=== PATIENT | male | born 1965 | race Caucasian/White ===

== ENCOUNTER 2023-06-21 17:03 | Emergency (ER) | payer BC, SELFPAY ==
[2023-06-21] VITALS (8 sets, daily range): BP systolic 83–164; BP diastolic 56–86; PULSE 82–93; RESP 18–22; TEMP 36.6; O2SAT 94–98
[2023-06-21 17:11] LABS: Glucose Point of Care 235 mg/dl (65-105)
--- NOTE | 2023-06-21 17:18 | ED.ABDPAIN ---
HPI - Abdominal Pain General Chief Complaint: Abdominal Pain Stated Complaint: CONSTIPATION Source: patient and EMS Mode of arrival: EMS History of Present Illness HPI narrative: 57 years old white male lives alone, came from home by ambulance complaining of no bowel movement over the last 4 days with abdominal pain. Patient report not able to eat over the last 3 days because of poor appetite. Patient on hemodialysis, missed last 1 which is 2 days ago. He denies any fever, chills, nausea or vomiting. Patient reported that he is leaking stool out of his anus over the last few days patient reported that he have history anuria but over the last 2 days been able to urinate quite a bed Related Data Home Medications Medication Instructions Recorded Confirmed cyclobenzaprine 10 mg tablet 10 mg PO TID PRN Pain 06/21/23 06/21/23 febuxostat 40 mg tablet 40 mg PO DAILY 06/21/23 06/21/23 furosemide 40 mg tablet 40 mg PO DAILY 06/21/23 06/21/23 glyburide 5 mg tablet 5 mg PO DAILY 06/21/23 06/21/23 hydrocodone 5 mg-acetaminophen 325 1 tablet PO Q8H PRN Pain 06/21/23 06/21/23 mg tablet nifedipine 60 mg tablet,extended 60 mg PO DAILY 06/21/23 06/21/23 release peg 400-propylene glycol (PF) 0.4 1 drp EACH EYE QID 06/21/23 06/21/23 %-0.3 % eye drops in a dropperette (Systane (PF)) pravastatin 40 mg tablet 40 mg PO HS 06/21/23 06/21/23 pregabalin 50 mg capsule 50 mg PO BID 06/21/23 06/21/23 propranolol 10 mg tablet 10 mg PO Q12H 06/21/23 06/21/23 vitamin B complex-vitamin C-folic 1 tablet PO DAILY 06/21/23 06/21/23 acid 0.8 mg tablet (Renal Vitamin) Allergies Allergy/AdvReac Type Severity Reaction Status Date / Time morphine Allergy Vomiting Verified 06/21/23 18:15 Review of Systems Review of Systems: All systems reviewed & are unremarkable except as noted in HPI and below Exam Narrative: General appearance: Well-developed, well-nourished, morbidly obese, difficult to move upper or lower extremities without multimedia assistant Skin: Normal color Head: Normocephalic, nontraumatic Eyes: Clear conjunctiva ENT: Oropharynx normal, ears normal, nose normal Neck: Supple, nontender Chest and respiratory: Airway patent, no respiratory distress, no accessory muscle use Heart: Regular rate/rhythm Abdomen: Soft, diffuse abdominal pain mainly lower abdomen, slight guarding, no rebound no organomegaly, quiet bowel sounds Vascular: Normal peripheral pulses, normal capillary refill. Musculoskeletal: Normal range of motion, nontender back Neurologic: Alert and oriented ?3, TRIAGE ASSISTANT is normal as tested, no gross motor deficit Course Consultations Consultation #1: Dr Vázquez, emergency room physician at [facility] ED Date: 06/21/23 Time: 21:59 Vital Signs Vital signs: Vital Signs Temperature 36.6 C 06/21/23 17:10 Pulse Rate 92 06/21/23 17:10 Respiratory Rate 20 06/21/23 17:10 Blood Pressure 116/79 06/21/23 17:10 Pulse Oximetry 95 06/21/23 17:10 Oxygen Delivery Room Air 06/21/23 17:10 Temperature 36.6 C 06/21/23 17:10 Pulse Rate 90 06/21/23 18:30 Respiratory Rate 20 06/21/23 18:30 Blood Pressure 125/76 06/21/23 18:30 Pulse Oximetry 94 06/21/23 18:30 Oxygen Delivery Room Air 06/21/23 18:30 MDM - Abdominal Pain MDM Narrative Medical decision making narrative: patient came with abdominal pain, constipation, missed last dialysis 3 days ago Patient is 200 kg, CT scan of the abdomen and pelvis cannot be done in our facility because of the patient's size and weight, after few trials to different hospitals we got the okay to be transferred to [facility]. In the ED patient received 50 mcg of fentany
[2023-06-21 17:45] LABS: Basophils Absolute Auto 0.02 K/mm3 (0.00-0.10); Basophils Percent Auto 0.2 % (0.0-1.0); Eosinophils Percent Auto 0.9 % (1.0-6.0); Hematocrit 31.6 % (40.0-54.0); Hemoglobin 10.6 g/dL (14.0-18.0); Immature Granulocyte Absolute 0.08 K/mm3 (0.00-0.00); Immature Granulocyte Percent A 0.8 % (0.0-0.0); Lymphocytes Absolute Auto 1.12 K/mm3 (1.10-4.50); Lymphocytes Percent Auto 10.6 % (18.0-42.0); Mean Corpuscular HGB Conc 33.5 g/dL (32-36); Mean Corpuscular Hemoglobin 31.7 pg (27.0-31.0); Mean Corpuscular Volume 94.6 fL (78.0-102.0); Mean Platelet Volume 9.2 fl (8.7-11.0); Monocytes Percent Auto 4.7 % (2.0-11.0); Neutrophils Absolute Auto 8.74 K/mm3 (1.70-7.20); Neutrophils Percent Auto 82.8 % (50.0-70.0); Platelet Count Result 150 K/mm3 (150-420); Red Blood Count 3.34 M/mm3 (4.70-6.10); Red Cell Distribution Width 13.9 % (11.6-14.4); White Blood Count 10.6 K/mm3 (4.8-10.8)
[2023-06-21 18:00] LABS: Alanine Aminotransferase 24 U/L (16-63); Albumin Level 3.2 g/dL (3.4-5.0); Alkaline Phosphatase 140 U/L (46-116); Anion Gap 22 mmol/L (4-12); Aspartate Amino Transferase 17 U/L (15-37); Bilirubin,Total 0.6 mg/dL (0.00-1.00); Blood Urea Nitrogen 128 mg/dL (7-18); Calcium 9.7 mg/dL (8.5-10.1); Carbon Dioxide 18 mmol/L (21-32); Chloride 92 mmol/L (98-108); Estimated CRCL calculation 9 ml/min; Estimated Glomerular Filt Rate 3; Glucose 200 mg/dL (70-99); Lipase 53 U/L (16-77); Osmolality Calculated 321 mOsm/kg (285-295); Potassium 5.7 mmol/L (3.5-5.1); Sodium 132 mmol/L (136-145); Total Protein 7.2 g/dL (6.4-8.2)
--- NOTE | 2023-06-21 18:03 | PC.NURSE ---
lab reports critical creatinin of 15.03. ERP made aware.
--- NOTE | 2023-06-21 18:10 | PC.NURSE ---
[address] PT UNABLE TO GET CT ABD DUE TO MACHINE COULD NOT HANDLE THE WEIGHT
--- NOTE | 2023-06-21 18:11 | PC.NURSE ---
[address] [facility] DECLINED PT [facility] DECLINED PT
[2023-06-21] MEDS: ONDANSETRON INJ 4 MG/2 ML VIAL 8 MG IV PUSH (18:21)
--- NOTE | 2023-06-21 19:03 | PC.NURSE ---
19[address] DR SANFORD TALKING WITH DOCTOR FROM [facility]
--- NOTE | 2023-06-21 19:08 | PC.NURSE ---
ERP at [place] will speak with the radiologist and they will call us back regarding transfer of pt for CT scan
--- NOTE | 2023-06-21 19:40 | PC.NURSE ---
Per [facility] radiology, they are unable to take the patient for CT scan 2/[address] weight[address] informed Dr. Ceja that [facility] is the only hospital that would be able to take him. Will call [facility]
--- NOTE | 2023-06-21 20:03 | PC.NURSE ---
[facility] requires a diameter of less than 80 cm at the pt widest part when lying flat. Pt measured about 70cm at his widest.
[2023-06-21] MEDS: fentaNYL CITRATE INJ (*CRX) 100 MCG/2 ML VIAL 50 MCG IV PUSH (20:29)
== END 2023-06-21 21:41 | disposition short-term general hospital (02) ==
PROVIDERS: Emergency Provider Emergency Medicine
DX: K59.00 Constipation, unspecified (principal); R10.9 Unspecified abdominal pain; Z99.2 Dependence on renal dialysis
CPT/HCPCS: 36415; 80053; 82948; 83690; 85025; 96374; 96375; 99284; 99285; J2405; J3010

== ENCOUNTER 2023-06-27 21:54 | Emergency (ER) | payer BC, SELFPAY ==
--- NOTE | ~2023-06-27 | CT_ITS ---
EXAMINATION: CT abdomen pelvis wo con DATE: 06/28/2023 00:48 INDICATION: Abdominal pain TECHNIQUE: Computed tomography (CT) of the abdomen and pelvis was performed without intravenous contr ast. The dose-length product was 1756.68 mGy-cm. Automated exposure control and iterative reconstruct ion technique were employed. COMPARISON: None. FINDINGS: There is bilateral lower lobe atelectasis. Heart size normal. Heart size normal. No signifi cant pleural or pericardial effusion. The liver, spleen, pancreas, right adrenal glands are unremarka ble. 1.5 cm left adrenal nodule, most likely benign adenoma. Gallbladder is present. Innumerable bila teral renal masses are present, some of which are intermediate density and high density, most likely polycystic kidney disease. There are nonobstructing bilateral renal stones. No hydronephrosis. No abn ormal pelvic masses or fluid collections. No free air or free fluid. There is diffuse sclerosis throu ghout the bones particularly in the spine. Metastatic disease cannot be excluded. IMPRESSION: 1. Bilateral lower lobe atelectasis. 2: Innumerable bilateral renal masses of varying density, most likely polycystic kidney disease. Cons ider correlation with MRI without and with contrast or ultrasound for further assessment. 3: Widespread sclerosis of the bones. Consider metastatic disease, renal osteodystrophy and myelofibr osis. Correlate for history of malignancy. Reviewed, dictated and finalized at location A. IMPRESSION: 1. Bilateral lower lobe atelectasis. 2: Innumerable bilateral renal masses of varying density, most likely polycysti c kidney disease. Consider correlation with MRI without and with contrast or ul trasound for further assessment. 3: Widespread sclerosis of the bones. Consider metastatic disease, renal osteod ystrophy and myelofibrosis. Correlate for history of malignancy.
[2023-06-27 21:55] VITALS: BP 134/73; PULSE 84; RESP 20; TEMP 36.6; O2SAT 95
[2023-06-27 23:00] VITALS: BP 132/71; PULSE 75; RESP 18; O2SAT 95
--- NOTE | 2023-06-27 23:06 | ED.GENADULT ---
HPI - General Adult General Chief complaint: Abdominal Pain Stated complaint: Abd Pain Source: patient Mode of arrival: ambulatory Limitations: no limitations History of Present Illness HPI narrative: 57-year-old morbidly obese white male complains of lower abdominal pain for the past 3-4 weeks. Goes to dialysis at [place] 3 times a Week Thursday and Thursday. complains of crampy lower abdominal pain and alternating between constipation and fecal incontinence. Says he is nauseated but not to the point were he has vomited. . He was seen here on June 20 and transferred to [facility] ED in [place] that time he had had a bowel movement for 4 days what is complaining of abdominal pain was admitted for [address] that he said was clear. Very poor historian. Says his pain is worse in his lower abdomen and he is losing stool when he does not want to complains of being a little dizzy. Had decreased appetite for the last 3 days. Denies any fever. He was at the [facility] last week and saw Dr. Tony Varela his primary care 2 days ago. Said the doctor did not really say much about his problem. He saw the doctor at the [facility]. . He has had little bit of her right shoulder discomfort little bit of a cough no shortness of breath he has had some blood in his stool. Denies any swelling except for a spot on his right leg it has been there for 5 months. Complains of some itching in his arms and legs. He says he is so fatty can not put his socks on for the last couple months and he has not driven his car for over a month. Past medical history arthritis all over had knee surgery diabetes type 2 hypertension hyperlipidemia. (Denies any heart lung liver disease strokes). Related Data Home Medications Medication Instructions Recorded Confirmed cyclobenzaprine 10 mg tablet 10 mg PO TID PRN Pain 06/21/23 06/28/23 febuxostat 40 mg tablet 40 mg PO DAILY 06/21/23 06/28/23 furosemide 40 mg tablet 40 mg PO DAILY 06/21/23 06/28/23 glyburide 5 mg tablet 5 mg PO DAILY 06/21/23 06/28/23 hydrocodone 5 mg-acetaminophen 325 1 tablet PO Q8H PRN Pain 06/21/23 06/28/23 mg tablet nifedipine 60 mg tablet,extended 60 mg PO DAILY 06/21/23 06/28/23 release pravastatin 40 mg tablet 40 mg PO HS 06/21/23 06/28/23 pregabalin 50 mg capsule 50 mg PO BID 06/21/23 06/28/23 propranolol 10 mg tablet 10 mg PO Q12H 06/21/23 06/28/23 vitamin B complex-vitamin C-folic 1 tablet PO DAILY 06/21/23 06/28/23 acid 0.8 mg tablet (Renal Vitamin) Allergies Allergy/AdvReac Type Severity Reaction Status Date / Time morphine Allergy Vomiting Verified 06/21/23 18:15 Review of Systems Review of Systems: All systems reviewed & are unremarkable except as noted in HPI and below Exam Narrative: morbidly obese white male in no apparent distress. Vital signs are normal. ?Head:? Normocephalic atraumatic.? Eyes conjunctiva pink sclera nonicteric.? ? Oropharynx is clear with moist mucous membranes no exudates.? Neck is supple no lymphadenopathy nontender full range of motion.? Back is nontender.? Chest nontender.? Lungs are clear without wheezes rales or rhonchi.? Heart is regular rate rhythm without murmurs gallops or rubs.? Abdomen soft and nontender no hepatosplenomegaly or masses no CVA tenderness no abdominal bruits.? Extremities no cyanosis clubbing or edema.? Neurological she is alert and oriented x4 motor and sensory grossly intact.? Skin is warm and dry without lesions. right leg with a anterior nontender lipoma. Course Vital Signs Vital signs: Vital Signs Temperature 36.6 C 06/27/23 21:55 Pulse Rate 84 06/27/23 21:55 Respiratory Rate 20 06/27/23 21:55 Blood Pressure 134/73 06/27/23 21:55 Pulse Oximetry 95 06/27/23 21:55 Oxygen Delivery Room Air 06/27/23 21:55 Temperature 36.6 C 06/27/23 21:55 Pulse Rate 84 06/28/23 01:00 Respiratory Rate 18 06/28/23 01:00 Blood Pressure 138/85 06/28/23 01:00 Pulse Ox
--- NOTE | 2023-06-28 00:10 | PC.NURSE ---
Faxed release form to [facility] to obtain med records for pt stay from 1 week ago.
[2023-06-28 01:00] VITALS: BP 138/85; PULSE 84; RESP 18; O2SAT 96
--- NOTE | 2023-06-28 01:15 | PC.NURSE ---
Pt sleeping upon check, TV oncologist borges at side, awaiting chart fax from [facility].
[2023-06-28 01:26] LABS: Basophils Absolute Auto 0.06 K/mm3 (0.00-0.10); Basophils Percent Auto 0.6 % (0.0-1.0); Eosinophils Absolute Auto 0.31 K/mm3 (0.02-0.50); Eosinophils Percent Auto 2.8 % (1.0-6.0); Hematocrit 32.6 % (40.0-54.0); Hemoglobin 10.3 g/dL (14.0-18.0); Immature Granulocyte Absolute 0.09 K/mm3 (0.00-0.00); Immature Granulocyte Percent A 0.8 % (0.0-0.0); Lymphocytes Absolute Auto 1.95 K/mm3 (1.10-4.50); Lymphocytes Percent Auto 17.9 % (18.0-42.0); Mean Corpuscular HGB Conc 31.6 g/dL (32-36); Mean Corpuscular Hemoglobin 31.1 pg (27.0-31.0); Mean Corpuscular Volume 98.5 fL (78.0-102.0); Mean Platelet Volume 9.2 fl (8.7-11.0); Monocytes Absolute Auto 0.87 K/mm3 (0.10-0.90); Neutrophils Absolute Auto 7.61 K/mm3 (1.70-7.20); Neutrophils Percent Auto 69.9 % (50.0-70.0); Platelet Count Result 192 K/mm3 (150-420); Red Blood Count 3.31 M/mm3 (4.70-6.10); Red Cell Distribution Width 13.5 % (11.6-14.4); White Blood Count 10.9 K/mm3 (4.8-10.8)
--- NOTE | 2023-06-28 01:40 | PC.NURSE ---
Pt continues to sleep, chart received from [facility] for ERP to review.
[2023-06-28 01:57] LABS: Alanine Aminotransferase 17 U/L (16-63); Albumin Level 3.1 g/dL (3.4-5.0); Alkaline Phosphatase 122 U/L (46-116); Anion Gap 16 mmol/L (4-12); Aspartate Amino Transferase 16 U/L (15-37); Bilirubin,Total 0.4 mg/dL (0.00-1.00); Blood Urea Nitrogen 92 mg/dL (7-18); Calcium 9.3 mg/dL (8.5-10.1); Carbon Dioxide 25 mmol/L (21-32); Chloride 96 mmol/L (98-108); Estimated CRCL calculation 10 ml/min; Estimated Glomerular Filt Rate 4; Glucose 85 mg/dL (70-99); Lipase 52 U/L (16-77); Osmolality Calculated 311 mOsm/kg (285-295); Potassium 4.3 mmol/L (3.5-5.1); Sodium 137 mmol/L (136-145); Total Protein 6.9 g/dL (6.4-8.2); Troponin I 15.7 ng/L (0.00-60.4)
[2023-06-28 02:00] LABS: Lactic Acid Reflex 0.4 mmol/L (0.4-2.0)
[2023-06-28 02:30] VITALS: BP 135/85; PULSE 75; RESP 18; O2SAT 98
--- NOTE | 2023-06-28 02:33 | PC.NURSE ---
POC discussed c pt to go home and take miralax as prescribed and ordered from his previous visit and d/c from [facility]. Pt attempting to find transportation for home.
--- NOTE | 2023-06-28 03:23 | ED.GENADULT ---
HPI - General Adult General Chief complaint: Abdominal Pain Stated complaint: Abd Pain Source: patient Mode of arrival: ambulatory Limitations: no limitations Related Data Home Medications Medication Instructions Recorded Confirmed cyclobenzaprine 10 mg tablet 10 mg PO TID PRN Pain 06/21/23 06/28/23 febuxostat 40 mg tablet 40 mg PO DAILY 06/21/23 06/28/23 furosemide 40 mg tablet 40 mg PO DAILY 06/21/23 06/28/23 glyburide 5 mg tablet 5 mg PO DAILY 06/21/23 06/28/23 hydrocodone 5 mg-acetaminophen 325 1 tablet PO Q8H PRN Pain 06/21/23 06/28/23 mg tablet nifedipine 60 mg tablet,extended 60 mg PO DAILY 06/21/23 06/28/23 release pravastatin 40 mg tablet 40 mg PO HS 06/21/23 06/28/23 pregabalin 50 mg capsule 50 mg PO BID 06/21/23 06/28/23 propranolol 10 mg tablet 10 mg PO Q12H 06/21/23 06/28/23 vitamin B complex-vitamin C-folic 1 tablet PO DAILY 06/21/23 06/28/23 acid 0.8 mg tablet (Renal Vitamin) Allergies Allergy/AdvReac Type Severity Reaction Status Date / Time morphine Allergy Vomiting Verified 06/21/23 18:15 Course Vital Signs Vital signs: Vital Signs Temperature 36.6 C 06/27/23 21:55 Pulse Rate 84 06/27/23 21:55 Respiratory Rate 20 06/27/23 21:55 Blood Pressure 134/73 06/27/23 21:55 Pulse Oximetry 95 06/27/23 21:55 Oxygen Delivery Room Air 06/27/23 21:55 Temperature 36.6 C 06/28/23 03:35 Pulse Rate 87 06/28/23 03:35 Respiratory Rate 18 06/28/23 03:35 Blood Pressure 140/75 06/28/23 03:35 Pulse Oximetry 96 06/28/23 03:35 Oxygen Delivery Room Air 06/28/23 03:35 Medical Decision Making Vital Signs Vital Signs: Vital Signs Temperature 36.6 C 06/27/23 21:55 Pulse Rate 84 06/27/23 21:55 Respiratory Rate 20 06/27/23 21:55 Blood Pressure 134/73 06/27/23 21:55 Pulse Oximetry 95 06/27/23 21:55 Oxygen Delivery Room Air 06/27/23 21:55 Temperature 36.6 C 06/28/23 03:35 Pulse Rate 87 06/28/23 03:35 Respiratory Rate 18 06/28/23 03:35 Blood Pressure 140/75 06/28/23 03:35 Pulse Oximetry 96 06/28/23 03:35 Oxygen Delivery Room Air 06/28/23 03:35 Lab Data 06/28/23 01:19 06/28/23 01:19 Labs: Lab Results 06/28/23 Range/Units 01:19 WBC 10.9 H (4.8-10.8) K/mm3 RBC 3.31 L (4.70-6.10) M/mm3 Hgb 10.3 L (14.0-18.0) g/dL Hct 32.6 L (40.0-54.0) % MCV 98.5 (78.0-102.0) fL MCH 31.1 H (27.0-31.0) pg MCHC 31.6 L (32-36) g/dL RDW 13.5 (11.6-14.4) % Plt Count 192 (150-420) K/mm3 MPV 9.2 (8.7-11.0) fl Immature Gran % (Auto) 0.8 H (0.0-0.0) % Neut % (Auto) 69.9 (50.0-70.0) % Lymph % (Auto) 17.9 L (18.0-42.0) % [place] % (Auto) 8.0 (2.0-11.0) % Eos % (Auto) 2.8 (1.0-6.0) % Baso % (Auto) 0.6 (0.0-1.0) % Lymph # (Auto) 1.95 (1.10-4.50) K/mm3 [place] # (Auto) 0.87 (0.10-0.90) K/mm3 Eos # (Auto) 0.31 (0.02-0.50) K/mm3 Baso # (Auto) 0.06 (0.00-0.10) K/mm3 Abs Immat Gran (auto) 0.09 H (0.00-0.00) K/mm3 Absolute Neuts (auto) 7.61 H (1.70-7.20) K/mm3 Absolute Nucleated RBC 0.00 (0.00-0.00) K/mm3 Nucleated RBC % 0.0 (0-0.0) % Sodium 137 (136-145) mmol/L Potassium 4.3 (3.5-5.1) mmol/L Chloride 96 L (98-108) mmol/L Carbon Dioxide 25 (21-32) mmol/L Anion Gap 16 H (4-12) mmol/L BUN 92 H (7-18) mg/dL Creatinine 12.99 H* (0.70-1.30) mg/dL Estim Creat Clear Calc 10 ml/min Estimated GFR 4 L (59 - ) Glucose 85 (70-99) mg/dL Calculated Osmolality 311 H (285-295) mOsm/kg Lactic Acid 0.4 (0.4-2.0) mmol/L Calcium 9.3 (8.5-10.1) mg/dL Total Bilirubin 0.4 (0.00-1.00) mg/dL AST 16 (15-37) U/L ALT 17 (16-63) U/L Alkaline Phosphatase 122 H (46-116) U/L Troponin I 15.7 (0.00-60.4) ng/L Total Protein 6.9 (6.4-8.2) g/dL Albumin 3.1 L (3.4-5.0) g/dL Lipase 52 (16-77) U/L Discharge Plan Discharge Clinical Impression: Abdominal pain, Constipation Patient Disposition: Home, Self-Ca
[2023-06-28 03:35] VITALS: BP 140/75; PULSE 87; RESP 18; TEMP 36.6; O2SAT 96
== END 2023-06-28 03:35 | disposition home or self-care (01) ==
PROVIDERS: Emergency Provider Emergency Medicine
DX: K59.00 Constipation, unspecified (principal); R10.30 Lower abdominal pain, unspecified; I10 Essential (primary) hypertension; E78.5 Hyperlipidemia, unspecified; E11.9 Type 2 diabetes mellitus without complications; E66.01 Morbid (severe) obesity due to excess calories; Z68.43 Body mass index [BMI] 50.0-59.9, adult; Z79.84 Long term (current) use of oral hypoglycemic drugs
CPT/HCPCS: 36415; 74176; 80053; 83605; 83690; 84484; 85025; 99284